=== PATIENT | female | born 1995 | race African-American/Black ===

== ENCOUNTER 2017-08-29 19:14 | Emergency (ER) | payer SELFPAY ==
--- NOTE | 2017-08-29 19:16 | NUR ---
PT AWAOL FROM WAITING ROOM
== END 2017-08-29 19:25 | disposition left against medical advice (07) ==
LOC: ER 19:14
DX: Z53.21 Procedure and treatment not carried out due to patient leaving prior to being seen by health care provider (principal)

== ENCOUNTER 2019-01-21 12:52 | Emergency (ER) | payer MEDICAID ==
--- NOTE | 2019-01-21 13:35 | NUR ---
called NO response
--- NOTE | 2019-01-21 13:40 | NUR ---
called NO response
--- NOTE | 2019-01-21 13:42 | NUR ---
Multiple calls No response. Brittany
== END 2019-01-21 13:43 | disposition left against medical advice (07) ==
LOC: ER 12:54
DX: Z53.21 Procedure and treatment not carried out due to patient leaving prior to being seen by health care provider (principal)

== ENCOUNTER 2019-01-21 14:18 | Emergency (ER) | payer MEDICAID ==
[~2019-01-21] VITALS: Ht 185.4 cm; Wt 77.1 kg
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
[2019-01-21] MEDS ORDERED: LIDOCAINE HCL/MPF 1% 30 ML VIAL IJ ONE (14:42)
[2019-01-21] MEDS ORDERED: LIDOCAINE 2% 20 ML MDV TP ONE (15:00)
--- NOTE | 2019-01-21 15:45 | NUR ---
Patient discharged to home in stable condition. Written and verbal after care instructions given. Patient verbalizes understanding of instruction.
[2019-01-21 15:47] VITALS: BP 132/84
== END 2019-01-21 15:47 | disposition home or self-care (01) ==
LOC: ER 14:19
DX: S61.210A Laceration without foreign body of right index finger without damage to nail, initial encounter (principal); W23.0XXA Caught, crushed, jammed, or pinched between moving objects, initial encounter; Y93.89 Activity, other specified; Y92.89 Other specified places as the place of occurrence of the external cause; Y99.8 Other external cause status
CPT/HCPCS: 12001; 99283; J3490